=== PATIENT | female | born 1950 | race Caucasian/White ===

== ENCOUNTER → 2017-03-15 | Outpatient (CLI) | payer OTHER, MEDICARE | LOC: MRI 09:59 | DX: R10.2 Pelvic and perineal pain (principal); M25.552 Pain in left hip ==

== ENCOUNTER → 2021-06-29 | Outpatient (CLI) | payer OTHER, MEDICARE ==
[~2021-06-29] VITALS: Ht 162.6 cm; Wt 59.4 kg
[~2021-06-29] MED LIST: ALEVE220 M1 PO; CLARITIN10 M3 PO; DESYREL150 MG PO; LOSARTAN-HCTZ1 EAC3 PO; LYRICA 50 MG50 MG PO; MEDROLDOSEPACK PO; ROSUVASTATIN CA10 MG PO; SUPER THERAVIT1 EACH PO; [UNRECOGNIZED DRUG - OTHER] PO
[2021-06-29 13:11] VITALS: BP 144/81
--- NOTE | 2021-06-29 13:37 | NUR ---
[facility] Assessment: 1. History of Osteoarthritis: History of Rheumatoid Arthritis: 2. Height: 5 ft. 4 in. 162.6 cm. Weight: 131.0 lb. oz. 59.421 kg. Patient's BMI: 22.5 3. Vital Signs: BP: 144/81 Pulse: 87 Resp: 16 Temp: 02 Sat: 98 ECG Mon: 4. Pain Intensity: 6 5. Fall Risk: Dizziness: Y Needs help standing or walking: N Fallen in the last 3 months: N Fall risk comments: 6. Patient on Blood Thinner: None 7. History of Hypertension: Y 8. Opioid Therapy greater than 6 weeks: N Opiate Contract Signed: 9. Risk Assessment Tool Provided: 0 LOW RISK 10. Functional Assessment Tool: 11. Recreational Drug Use: Never Drug Type: Tobacco Use: Never Smoker Tobacco Type: Amount or Packs/day: How Many Years: Alcohol Use: Yes Frequency: Weekly Quant: 2 DRINKS WEEKLY
== END ==
LOC: PAIN 12:57
PROVIDERS: ATTEND Anesthesiology Pain Medicine
DX: M54.2 Cervicalgia (principal); M75.101 Unspecified rotator cuff tear or rupture of right shoulder, not specified as traumatic